=== PATIENT | female | born 1980 | race Caucasian/White ===

== ENCOUNTER 2019-08-07 19:54 | Emergency (ER) | payer SELFPAY ==
[2019-08-07 20:04] VITALS: BP 103/60
--- NOTE | 2019-08-07 20:14 | ER Document Report ---
ED Medical Screen (RME) - General Chief Complaint: Abdominal Pain Stated Complaint: ABDOMINAL PAIN Time Seen by Provider: 08/07/19 20:07 Mode of Arrival: Ambulatory Information source: Patient Notes: 39-year-old female presents to ED with complaint of upper abdominal pain and cramping for 7 months. She states it is sometimes cramping for several hours at a time sometimes all day. She states sometimes she has diarrhea sometimes she is constipated. She states she does not have any insurance and has no way to go to the doctor. She states what brought into the emergency room tonight is that last night the pain woke her up from a sleep because it was so sharp and painful. She states her medical history is a breast augmentation and bilateral tubal ligation. She states she uses a vapor cigarette drinks 2 times a year and no drugs. 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 She denies any nausea or vomiting. She states in the morning she is in the bat hroom every couple minutes for 2 hours and then in the evening it feels like she needs to go to the bathroom and she cannot go. I have greeted and performed a rapid initial assessment of this patient. A comprehensive ED assessment and evaluation of the patient, analysis of test results and completion of medical decision making process will be conducted by an additional ED providers. TRAVEL OUTSIDE OF THE [place] IN LAST 30 DAYS: No Past Medical History Past Surgical History: Reports: Hx Tubal Ligation Physical Exam - Vital signs Vitals: Temp Pulse Resp BP Pulse Ox 98.2 F 77 18 103/60 100 08/07/19 20:03 08/07/19 20:03 08/07/19 20:03 08/07/19 20:03 08/07/19 20:03 Course - Vital Signs Vital signs: Temp Pulse Resp BP Pulse Ox 98.2 F 77 18 103/60 100 08/07/19 20:03 08/07/19 20:03 08/07/19 20:03 08/07/19 20:03 08/07/19 20:03
[2019-08-07 21:05] LABS: ABSOLUTE BASOPHILS # (AUTO) 0.1 10^3/uL (0.0-0.2); ABSOLUTE EOSINOPHILS # (AUTO) 0.1 10^3/uL (0.0-0.6); ABSOLUTE LYMPHOCYTES (AUTO) 1.9 10^3/uL (0.5-4.7); ABSOLUTE MONOCYTES (AUTO) 0.6 10^3/uL (0.1-1.4); ABSOLUTE NEUT (AUTO) 5.5 10^3/uL (1.7-8.2); BASOPHILS % (AUTO) 0.8 % (0-2); EOSINOPHILS % (AUTO) 1.6 % (0-6); HEMOGLOBIN 13.4 g/dL (12.0-15.5); LYMPHOCYTES % (AUTO) 23.8 % (13-45); MEAN CORPUSCULAR HEMOGLOBIN 31.3 pg (27.0-33.4); MEAN CORPUSCULAR HGB CONC 34.3 g/dL (32.0-36.0); MEAN CORPUSCULAR VOLUME 91 fl (80-97); PLATELET COUNT 295 10^3/uL (150-450); RED BLOOD COUNT 4.28 10^6/uL (3.72-5.28); RED CELL DISTRIBUTION WIDTH 12.5 % (11.5-14.0); SEGMENTED NEUTROPHILS % (AUTO) 66.8 % (42-78); TOTAL CELLS COUNTED % (AUTO) 100 %; WHITE BLOOD COUNT 8.2 10^3/uL (4.0-10.5)
[2019-08-07 21:14] LABS: ALBUMIN 4.4 g/dL (3.5-5.0); ALKALINE PHOSPHATASE 81 U/L (38-126); ANION GAP 10 (5-19); ASPARTATE AMINO TRANSFERASE 24 U/L (14-36); BILIRUBIN,DIRECT 0.1 mg/dL (0.0-0.4); BILIRUBIN,TOTAL 0.3 mg/dL (0.2-1.3); BLOOD UREA NITROGEN 16 mg/dL (7-20); CALCIUM 10.3 mg/dL (8.4-10.2); CARBON DIOXIDE 29 mmol/L (22-30); CHLORIDE 103 mmol/L (98-107); GLUCOSE 89 mg/dL (75-110); POTASSIUM 4.3 mmol/L (3.6-5.0); TOTAL PROTEIN 6.9 g/dL (6.3-8.2)
[2019-08-07 21:27] LABS: APPEARANCE,URINE SLIGHTLY-CLOUDY; BILIRUBIN,URINE NEGATIVE (NEGATIVE); COLOR,URINE YELLOW; GLUCOSE, URINE NEGATIVE (NEGATIVE); KETONES,URINE NEGATIVE (NEGATIVE); PROTEIN,URINE NEGATIVE (NEGATIVE); URINE SPECIFIC GRAVITY 1.021; UROBILINOGEN,URINE NEGATIVE mg/dL (<2.0)
[2019-08-07 21:33] LABS: CALCIUM OXALATE CRYSTALS,URINE FEW /HPF
--- NOTE | 2019-08-07 22:25 | ER Document Report ---
ED General - General Chief Complaint: Abdominal Pain Stated Complaint: ABDOMINAL PAIN Time Seen by Provider: 08/07/19 20:07 Primary Care Provider: SHERYL ALVARADO PA-C [Primary Care Provider] - Follow up as needed Mode of Arrival: Ambulatory TRAVEL OUTSIDE OF THE [place] IN LAST 30 DAYS: No - HPI Notes: 39-year-old female presenting with a chief complaint of chronic/intermittent abdominal pain. Patient complains of intermittent cramping epigastric and right upper quadrant abdominal pain on and off for the past 2 years. She does not have a primary care physician and has not had previous medical work-up for this complaint. Interestingly she notes she is gained about 30 pounds very slowly over the same period of time. She recently was seen in the mental health clinic and has been started on Wellbutrin. She is on no other medications and denies a [place] known allergies. Patient has had a previous tubal ligation. No other surgery. Patient denies any known history of biliary tract disease or peptic ulcer disease. Patient says that she has intermittent alternating episodes of constipation and diarrhea. There is no significant family history of any type of gastrointestinal diseases. No specific precipitating or alleviating factors for her symptoms are identified. Severity is described as moderate. Past Medical History - General Information source: Patient - Social History Smoking Status: Never Smoker Family History: Reviewed & Not Pertinent Patient has suicidal ideation: No Patient has homicidal ideation: No Past Surgical History: Reports: Hx Tubal Ligation Review of Systems - Review of Systems Notes: Constitutional: Negative for fever. HENT: Negative for sore throat. Eyes: Negative for visual changes. Cardiovascular: Negative for chest pain. Respiratory: Negative for shortness of breath. Gastrointestinal: As per HPI. Genitourinary: Negative for dysuria. Musculoskeletal: Negative for back pain. Skin: Negative for rash. Neurological: Negative for headaches, weakness or numbness. 10 point ROS negative except as marked above and in HPI. Physical Exam - Vital signs Vitals: Temp Pulse Resp BP Pulse Ox 98.2 F 77 18 103/60 100 08/07/19 20:03 08/07/19 20:03 08/07/19 20:03 08/07/19 20:03 08/07/19 20:03 Notes: GENERAL: Well-developed well-nourished appearing in no acute distress. SKIN: Good turgor no rashes. HEAD: Normocephalic atraumatic. EYES: PERRLA. Conjunctivae and sclerae clear. EARS: CANALS AND TMS CLEAR. NOSE: CLEAR. MOUTH: Moist mucosa. Good dentition. No stridor or edema. No drooling. NECK: Supple. No masses or thyromegaly. No adenopathy. Carotids 2+ without bruits. No JVD. BACK: Symmetrical without tenderness. CHEST: Respirations unlabored. Breath sounds clear and symmetrical. HEART: Regular rhythm. No murmur gallop or rub. ABDOMEN: Soft nontender without masses, organomegaly or rebound. Bowel sounds normally active. No bruits. GENITALIA: Deferred. EXTREMITIES: No edema. No calf tenderness. Cap refill less than 1.5 seconds. Dorsalis pedis and posterior tibial pulses 3+ and symmetrical. NEUROLOGICAL: GCS 15. Alert and oriented x3. Normal gait. Fluent speech. Cranial nerves II through XII intact. Sensorimotor and cerebellar normal. Normal tone. Course - Re-evaluation Re-evalutation: 08/07/19 22:32 This lady has unremarkable labs here including urinalysis, CBC and comprehensive metabolic profile. She has no significant abnormal findings on physical exam. My suspicion is that she probably has functional bowel syndrome and we note that her complaints are long-standing and waxing and waning in nature. I am going to try her on some symptomatic treatment with Bentyl refer her to primary care rudolph goodrich for follow-up. - Vital Signs Vital signs: Temp Pulse Resp BP Pulse Ox 98.2 F 77 18 103/60 100 08/07/19 20:03 08/07/19 20:03 08/07/19 20:03 08/07/19 20:03 08/07/19 20:03 - Laboratory Result Diagrams: 08/07/19 20:23 08/07/19 20:23 Laboratory results interpreted by me: 08/07/19 08/07/19 20:23 20:23 Calcium 10.3 H Urine Blood SMALL H Leukocyte Esterase Rfl TRACE H Discharge - Discharge Clinical Impression: Chronic abdominal pain Condition: Stable Disposition: HOME, SELF-CARE Instructions: Abdominal Pain ([facility]), Antispasmodics ([facility]) Additional Instructions: Return here as needed for new or worsening symptoms. Follow-up with referral physician as directed. Prescriptions: Dicyclomine HCl [Bentyl 10 mg Capsule] 1 cap PO TID #30 cap Referrals: SHERYL ALVARADO PA-C [Primary Care Provider] - Follow up as needed
== END 2019-08-07 22:41 | disposition home or self-care (01) ==
LOC: ER 19:54
DX: G89.29 Other chronic pain (principal); R10.13 Epigastric pain; R10.11 Right upper quadrant pain
CPT/HCPCS: 36415; 80053; 81001; 83690; 84703; 85025; 87086; 99284